=== PATIENT | male | born 1955 | race Caucasian/White ===

== ENCOUNTER 2021-09-14 17:49 | Inpatient (IN) | payer BC ==
[~2021-09-14] VITALS: Ht 185.4 cm; Wt 126.1 kg
[2021-09-14 19:32] LABS: HEMOGLOBIN 7.5 gm/dl (14.0-17.5); RED BLOOD COUNT 2.4 M/UL (4.20-5.50); WHITE BLOOD COUNT 6.4 K/UL (4.5-11.0)
[2021-09-14 20:09] LABS: BUN/CREATININE RATIO 26 (0-10)
[2021-09-15] MEDS ORDERED: SIMVASTATIN20 MG PO (00:45)
[2021-09-15] MEDS ORDERED: FLOMAX 0.4 MG0.4 MG PO (00:46)
[2021-09-15] MEDS ORDERED: ZYLOPRIM 100 M100 MG PO (00:46)
[2021-09-15] MEDS ORDERED: SERTRALINE HCL25 MG PO (00:47)
[2021-09-15] MEDS ORDERED: CYCLOBENZAPRINE10 MG PO (00:50)
[2021-09-15] MEDS ORDERED: COLCRYS0.6 MG PO (00:51)
[2021-09-15 07:07] LABS: WHITE BLOOD COUNT 5.5 K/UL (4.5-11.0)
[2021-09-15 07:27] LABS: RED BLOOD COUNT 2.03 M/UL (4.20-5.50)
[2021-09-15 07:28] LABS: HEMOGLOBIN 6.6 gm/dl (14.0-17.5)
[2021-09-15 07:48] LABS: BUN/CREATININE RATIO 30 (0-10)
[2021-09-15] MEDS ORDERED: HYDROXYZINE PAM25 MG PO (11:16)
[2021-09-15] MEDS ORDERED: MONTELUKAST SOD10 MG PO (11:16)
[2021-09-15] MEDS ORDERED: LOSARTAN POTASS50 MG PO (11:17)
[2021-09-15] MEDS ORDERED: OMEPRAZOLE20 MG PO (11:17)
[2021-09-15] MEDS ORDERED: ALLERCLEAR D-21 EACH PO (11:17)
[2021-09-15] MEDS ORDERED: HYDROCODON-ACE1 EAC4 PO (11:19)
[2021-09-15] MEDS ORDERED: NAPROXEN500 MG PO (11:20)
[2021-09-16 12:42] LABS: HEMOGLOBIN 7.8 gm/dl (14.0-17.5); WHITE BLOOD COUNT 5.8 K/UL (4.5-11.0)
[2021-09-16 13:15] LABS: RED BLOOD COUNT 2.53 M/UL (4.20-5.50)
[2021-09-16 13:39] LABS: BUN/CREATININE RATIO 24 (0-10)
[2021-09-17 03:55] LABS: HEMOGLOBIN 7.5 gm/dl (14.0-17.5); RED BLOOD COUNT 2.43 M/UL (4.20-5.50); WHITE BLOOD COUNT 5.7 K/UL (4.5-11.0)
[2021-09-18 12:21] LABS: HEMOGLOBIN 7.5 gm/dl (14.0-17.5); RED BLOOD COUNT 2.45 M/UL (4.20-5.50)
[2021-09-18 13:07] LABS: BUN/CREATININE RATIO 25 (0-10)
[2021-09-19 07:05] LABS: HEMOGLOBIN 7.1 gm/dl (14.0-17.5); RED BLOOD COUNT 2.3 M/UL (4.20-5.50); WHITE BLOOD COUNT 9.3 K/UL (4.5-11.0)
[2021-09-19 07:55] LABS: BUN/CREATININE RATIO 27 (0-10)
[2021-09-19] MEDS ORDERED: ROXICODONE TAB 55 MG PO (13:54)
[2021-09-19] MEDS ORDERED: ZOFRAN 4 MG TAB4 MG PO (13:58)
[2021-09-19] MEDS ORDERED: BICALUTAMIDE50 MG PO (15:51)
--- NOTE | 2021-09-19 20:06 | NUR ---
APPROX 1950 BOTH IV'S TAKEN OUT 20 RAC AND 20 LFA HELD MANUAL PRESSURE TO BOTH. PT TOLERATED WELL. GAUZE AND TAPE WAS APPLIED.
== END 2021-09-19 19:52 | disposition home or self-care (01) | DRG 812 ==
LOC: ER1 17:49 → CDU 22:27 → MED SURG 4 22:27
PROVIDERS: Internal Medicine Infectious Disease; Physician Assistant; ADMIT Internal Medicine
PROC: 07DR3ZX Extraction of Iliac Bone Marrow, Percutaneous Approach, Diagnostic (ICD-10-PCS; principal; 2021-09-15)
PROC: 30233R1 Transfusion of Nonautologous Platelets into Peripheral Vein, Percutaneous Approach (ICD-10-PCS; 2021-09-15)
PROC: 30233H1 Transfusion of Nonautologous Whole Blood into Peripheral Vein, Percutaneous Approach (ICD-10-PCS; 2021-09-15)
PROC: B24BZZZ Ultrasonography of Heart with Aorta (ICD-10-PCS; 2021-09-19)
DX: D46.9 Myelodysplastic syndrome, unspecified (principal); C79.51 Secondary malignant neoplasm of bone; D61.818 Other pancytopenia; M84.48XA Pathological fracture, other site, initial encounter for fracture; M96.810 Intraoperative hemorrhage and hematoma of a musculoskeletal structure complicating a musculoskeletal system procedure; Z68.41 Body mass index [BMI] 40.0-44.9, adult; Z20.822 Contact with and (suspected) exposure to COVID-19; Y83.8 Other surgical procedures as the cause of abnormal reaction of the patient, or of later complication, without mention of misadventure at the time of the procedure; I10 Essential (primary) hypertension; M19.90 Unspecified osteoarthritis, unspecified site; E66.9 Obesity, unspecified; D69.6 Thrombocytopenia, unspecified; C61 Malignant neoplasm of prostate; F41.9 Anxiety disorder, unspecified; I08.3 Combined rheumatic disorders of mitral, aortic and tricuspid valves; E78.5 Hyperlipidemia, unspecified; M10.9 Gout, unspecified; G89.29 Other chronic pain; M54.9 Dorsalgia, unspecified; N20.0 Calculus of kidney; Z98.890 Other specified postprocedural states; Z88.6 Allergy status to analgesic agent
CPT/HCPCS: ECHO; 0240U; 36415; 71045; 71250; 80053; 82550; 82553; 82607; 82728; 82746; 83540; 83550; 83615; 83735; 83880; 84153; 84484; 85025; 85384; 85610; 85730; 86850; 86900; 86901; 86920; 93005; 93306; 96374; 96375; 96376; 97161; 99285; J1100; J1642; J1756; J2270; J2405; J2550; P9016; P9037; Q0177; Q9967

== ENCOUNTER → 2021-09-26 | Outpatient (CLI) | payer BC ==
[~2021-09-26] MED LIST: ALLERCLEAR D-21 EACH PO; BICALUTAMIDE50 MG PO; COLCRYS0.6 MG PO; CYCLOBENZAPRINE10 MG PO; FLOMAX 0.4 MG0.4 MG PO; HYDROCODON-ACE1 EAC4 PO; HYDROXYZINE PAM25 MG PO; LOSARTAN POTASS50 MG PO; MONTELUKAST SOD10 MG PO; NAPROXEN500 MG PO; OMEPRAZOLE20 MG PO; ROXICODONE TAB 55 MG PO; SERTRALINE HCL25 MG PO; SIMVASTATIN20 MG PO; ZOFRAN 4 MG TAB4 MG PO; ZYLOPRIM 100 M100 MG PO
== END ==
LOC: EXRD 08:24
DX: M89.9 Disorder of bone, unspecified (principal)
CPT/HCPCS: 77080

== ENCOUNTER → 2021-10-03 | Outpatient (CLI) | payer BC | LOC: NM 09:00 | DX: Z12.89 Encounter for screening for malignant neoplasm of other sites (principal); C61 Malignant neoplasm of prostate; C79.52 Secondary malignant neoplasm of bone marrow; M84.58XA Pathological fracture in neoplastic disease, other specified site, initial encounter for fracture; M89.9 Disorder of bone, unspecified | CPT/HCPCS: 78306; A9503 ==

== ENCOUNTER → 2021-10-17 | Outpatient (CLI) | payer BC | LOC: RAD 15:56 | DX: M25.551 Pain in right hip (principal); M25.552 Pain in left hip; C79.52 Secondary malignant neoplasm of bone marrow; C61 Malignant neoplasm of prostate; M84.58XA Pathological fracture in neoplastic disease, other specified site, initial encounter for fracture; M89.9 Disorder of bone, unspecified | CPT/HCPCS: 73522 ==

== ENCOUNTER 2021-10-31 15:09 | Emergency (ER) | payer BC ==
[2021-10-31 16:35] LABS: HEMOGLOBIN 9.8 gm/dl (14.0-17.5); RED BLOOD COUNT 3.07 M/UL (4.20-5.50); WHITE BLOOD COUNT 4.9 K/UL (4.5-11.0)
[2021-10-31 17:37] LABS: BUN/CREATININE RATIO 22 (0-10)
== END 2021-10-31 21:00 | disposition home or self-care (01) ==
LOC: ER1 15:09
PROVIDERS: Physician Assistant
DX: I87.8 Other specified disorders of veins (principal); Z85.46 Personal history of malignant neoplasm of prostate
CPT/HCPCS: 71045; 80053; 83880; 85025; 93970; 99284